=== PATIENT | female | born 1980 | race Two or more races ===

== ENCOUNTER 2016-12-14 18:09 | Emergency (ER) | payer OTHER ==
[2016-12-14] MEDS ORDERED: IOPAMIDOL 300 (61%) 100 ML VIAL IV ONE (18:10)
[2016-12-14] MEDS ORDERED: HYDROMORPHONE HCL 0.5 MG/0.5 ML SYRINGE ONE (19:08)
[2016-12-14] MEDS ORDERED: ONDANSETRON 4 MG/2ML 2 ML VIAL ONE (19:08)
[2016-12-14] MEDS ORDERED: LACTATED RINGERS 1,000 ML ONE (19:08)
[2016-12-14 19:23] LABS: ALB/GLOB RATIO 1.7 (>1.0); ALBUMIN 4.3 gm/dL (3.5-5.7); CALCIUM 9.5 mg/dL (8.6-10.3)
[2016-12-14 19:33] LABS: ABSOLUTE NEUTROPHIL COUNT 9.9 K/mm3 (1.8-7.7); BASO # 0.1 K/mm3 (0.0-0.2); BASO % 0.4 % (0.2-1.0); EOS # 0.2 (0.0-0.5); EOS % 1.6 % (0.9-2.9); HEMATOCRIT 38.2 % (37.0-47.0); HEMOGLOBIN 12.6 gm/l (12.0-16.0); IMM NEUT% 0.3 % (0-1); LYMPH # 1.7 (1.0-4.8); LYMPH % 13.5 % (15-45); MEAN CELL VOLUME 89.9 fl (81.0-99.0); MEAN CORPUSCULAR HEMOGLOBIN 29.6 pg (27.0-31.0); MEAN PLATELET VOLUME 11.7 fl (7.4-10.4); MONO # 0.7 (0.0-0.8); MONO % 5.2 % (4-12); PLATELET COUNT 233 K/mm3 (130-400); RED CELL DISTRIBUTION WIDTH 12.8 % (11.5-14.5)
[2016-12-14 19:39] LABS: HCG,QUALITATIVE URINE NEGATIVE
[2016-12-14 19:40] LABS: URINE BILIRUBIN NEGATIVE (NEGATIVE); URINE BLOOD 4+ (NEGATIVE); URINE GLUCOSE (UA) NEGATIVE (NEGATIVE); URINE LEUKOCYTE ESTERASE 2+ (NEGATIVE); URINE NITRITE NEGATIVE (NEGATIVE); URINE PROTEIN 1+ (NEGATIVE); URINE UROBILINOGEN NORMAL (0-1 mg/dl)
[2016-12-14 19:53] LABS: URINE APPEARANCE CLOUDY; URINE COLOR YELLOW
--- NOTE | 2016-12-14 20:05 | CT ---
Exam: CT abdomen and pelvis with contrast COMPARISON: None INDICATION: Right lower quadrant pain. TECHNIQUE: CT examination of the abdomen and pelvis was obtained following the administration of 100 mL Isovue-300 intravenous contrast. FINDINGS: The bowel, including the appendix, is unremarkable and there is no bowel obstruction, free air or free intraperitoneal fluid. There is wall thickening of the urinary bladder, particularly along the dome; correlate for cystitis. There is no hydronephrosis. There is asymmetric urothelial enhancement on the right, particularly involving the ureter. Kidneys enhance symmetrically. There is no perinephric stranding or fluid collection. The liver, spleen, pancreas, adrenal glands and gallbladder are unremarkable. Uterus is present and within normal limits. No adnexal mass is identified. Lung bases are clear. No worrisome osseous abnormality is identified. IMPRESSION: 1. Normal appendix. 2. Urinary bladder wall thickening, particularly involving the dome, and asymmetric urothelial enhancement identified on the right, correlate for cystitis/urinary tract infection. There is no CT evidence of pyelonephritis. 3. Otherwise negative CT abdomen and pelvis. Report was uploaded to the EMR at 2001 hours 12/14/2016.
[2016-12-14 20:43] LABS: URINE WBC PACKED /hpf
[2016-12-14 20:44] LABS: URINE BACTERIA 2+
[2016-12-14] MEDS ORDERED: CEPHALEXIN 500 MG CAPSULE ONE (20:54)
== END 2016-12-14 21:13 | disposition home or self-care (01) ==
LOC: ED 18:09
DX: N39.0 Urinary tract infection, site not specified (principal); R11.0 Nausea
CPT/HCPCS: 83690; 81025; 85025; 87086; 80053; 87186; 81001; 74177; 96375; 99284 ×2; 96374; 96361 ×2; A9270; J2405; J7120; Q9967; J1170